=== PATIENT | male | born 1985 | race Caucasian/White ===

== ENCOUNTER 2017-12-21 19:50 | Emergency (ER) | payer OTHER ==
[~2017-12-21] VITALS: Ht 182.9 cm; Wt 136.5 kg
[~2017-12-21 19:50] MED LIST: CIPRO500 MG PO; NORCO 5-325 TA1 EAC1 PO; ULTRAM 50MG TAB50 MG PO; VIAGRA; ZOFRAN ODT4 MG PO
[2017-12-21] MEDS ORDERED: IBUPROFEN 600600 M1 PO (20:51)
[2017-12-21 21:17] VITALS: BP 120/73
[2017-12-21 21:18] LABS: AMP/METHAMP POSITIVE (Negative); BARBITURATES Negative (Negative); BENZODIAZEPINES POSITIVE (Negative); COCAINE Negative (Negative); METHADONE Negative (Negative); OPIATES Negative (Negative); PCP Negative (Negative); THC Negative (Negative)
== END 2017-12-21 21:19 | disposition home or self-care (01) ==
LOC: M.ERS 19:50
PROVIDERS: Nurse Practitioner Family
DX: S30.0XXA Contusion of lower back and pelvis, initial encounter (principal); F31.9 Bipolar disorder, unspecified; F17.200 Nicotine dependence, unspecified, uncomplicated; W50.0XXA Accidental hit or strike by another person, initial encounter; Y93.89 Activity, other specified; Y92.89 Other specified places as the place of occurrence of the external cause; Y99.8 Other external cause status

== ENCOUNTER 2019-11-23 12:36 | Emergency (ER) | payer MEDICAID ==
[~2019-11-23] VITALS: Ht 182.9 cm; Wt 129.3 kg
[~2019-11-23 12:36] MED LIST changes: +IBUPROFEN 600600 M1 PO
[2019-11-23] MEDS ORDERED: BUSPIRONE HCL15 MG PO (12:47)
[2019-11-23] MEDS ORDERED: EFFEXOR XR75 MG PO (12:47)
[2019-11-23] MEDS ORDERED: FLONASE 0.05%50 MCG NARES (12:48)
[2019-11-23] MEDS ORDERED: CLARITIN10 M3 PO (12:48)
[2019-11-23] MEDS ORDERED: TOPAMAX100 MG PO (12:48)
[2019-11-23] MEDS ORDERED: IBUPROFEN 600600 M1 PO (13:48)
[2019-11-23 14:03] VITALS: BP 134/77
== END 2019-11-23 14:03 | disposition home or self-care (01) ==
LOC: M.ERS 12:36
DX: S62.316A Displaced fracture of base of fifth metacarpal bone, right hand, initial encounter for closed fracture (principal); F41.9 Anxiety disorder, unspecified; F31.9 Bipolar disorder, unspecified; F17.210 Nicotine dependence, cigarettes, uncomplicated; W22.8XXA Striking against or struck by other objects, initial encounter; Y93.89 Activity, other specified; Y92.89 Other specified places as the place of occurrence of the external cause; Y99.8 Other external cause status

== ENCOUNTER 2020-07-06 04:59 | Inpatient (IN) | payer MEDICAID ==
[~2020-07-06] VITALS: Ht 182.9 cm; Wt 144.7 kg
[~2020-07-06 04:59] MED LIST changes: +BUSPIRONE HCL15 MG PO; +CLARITIN10 M3 PO; +EFFEXOR XR150 MG PO; +FLONASE 0.05%50 MCG NARES; +TOPAMAX50 MG PO
[2020-07-06 05:11] VITALS: BP 134/82
[2020-07-06 05:44] LABS: ABSOLUTE BASOPHILS 0.2 thou/uL (0.0-0.2); ABSOLUTE EOSINOPHILS 0.7 thou/uL (0.0-0.7); ABSOLUTE LYMPHOCYTES 3.1 thou/uL (0.8-5.3); ABSOLUTE MONOCYTES 1.4 thou/uL (0.0-1.2); ABSOLUTE NEUTROPHILS 9.5 thou/uL (1.6-8.1); BASOPHILS 1.3 %; HEMATOCRIT 41.3 % (42.0-52.0); HEMOGLOBIN 13.6 gm/dL (14.0-18.0); LYMPHOCYTES 20.8 %; MCH 27.6 pg (26.0-34.0); MCHC 32.9 g/dL (28.0-37.0); MCV 83.8 fL (80.0-100.0); MONOCYTES 9.6 %; MPV 7.8 fl. (7.2-11.1); NUCLEATED RBCS 0 /100WBC; PLATELET COUNT* 413 thou/uL (150-400); POLYS 63.3 %; RBC 4.93 mil/uL (4.50-6.00)
[2020-07-06 06:00] LABS: CALCIUM 8.7 mg/dL (8.5-10.1); CREATININE 1.4 mg/dL (0.6-1.3); POTASSIUM 3.7 mmol/L (3.5-5.1)
[2020-07-06 06:04] LABS: ALBUMIN 3.1 g/dL (3.4-5.0); TOTAL BILIRUBIN 0.5 mg/dL (<0.1-1.0); TOTAL PROTEIN 7.5 g/dL (6.4-8.2)
[2020-07-06 06:46] VITALS: BP 141/81
[2020-07-06 07:45] VITALS: BP 105/83
[2020-07-06 11:30] LABS: URINE BILIRUBIN NEGATIVE (Negative); URINE BLOOD TRACE (Negative); URINE CLARITY CLEAR; URINE COLOR YELLOW; URINE GLUCOSE-RANDOM NEGATIVE (Negative); URINE KETONES NEGATIVE (Negative); URINE LEUKOCYTES-REFLEX NEGATIVE (Negative); URINE NITRITE-REFLEX NEGATIVE (Negative); URINE PROTEIN NEGATIVE (Negative); URINE SPECIFIC GRAVITY >= 1.030 (1.005-1.030); URINE UROBILINOGEN 0.2 E.U./dl (0.2-1.0)
[2020-07-06 11:38] LABS: AMP/METHAMP POSITIVE (Negative); BARBITURATES Negative (Negative); BENZODIAZEPINES Negative (Negative); COCAINE Negative (Negative); METHADONE Negative (Negative); OPIATES POSITIVE (Negative); PCP Negative (Negative); THC Negative (Negative)
[2020-07-06] MEDS ORDERED: NORCO 10-325 T1 EACH PO (12:28)
[2020-07-06 14:38] VITALS: BP 105/83
--- NOTE | 2020-07-06 14:55 | NUR ---
PT.LYING IN BED WITH LEG WOUNDS OPEN TO AIR. WOUND CARE NURSE SAW EARLIER. NURSING WILL DO DRESSING CHANGES. WAITING ON HIBICLENS TO COME FROM PHARMACY. HE SAID HE WAS FOLLOWING A JEWEL SORTER. HE SAID HE THOUGHT ALL ALONG SHE WAS A DR. HE NOW IS GOING TO SEE A DR.[place] [facility] [place] [facility] [place] GAVE ME CLINIC NUMBER OF [id number]. CM CALLED TO CONFIRM HIS APPT. RUBBER FACTORY WORKER SAID IT IS 07/13 AT 8:20 AM. CM MADE APPT[place] [facility] [place]/10 AT 1:00. ALL INFORMATION PUT ON DISCHARGE INSTRUCTIONS. WOUND CLINIC SAID PT.HAS MISSED 3 OTHER APPTS. THEY WILL GIVE HIM ONE MORE CHANCE. IF HE MISSES THIS APPT., THEY WILL NOT SEE HIM AGAIN. PT.ONLY TOLD CM HE MISSED ONE APPT.BECAUSE HE COULD NOT GET THERE BECAUSE OF THE SNOW.
[2020-07-06 14:56] VITALS: BP 105/83
--- NOTE | 2020-07-06 15:20 | NUR ---
PATIENT DISCHARGED TO HOME. DISCHARGE PAPERS REVIEWED AND SIGNED. PRESCRIPTION TRANSMITTED TO PHARMACY AND INFORMATION SHEETS GIVEN. IV REMOVED. WOUND CARE AND SUPPLIES GIVEN. PHOTOS REFUSED. PATIENT INSTRUCTED ON FOLLOW-UP APPOINTMENT FOR WOUND CARE CENTER AND DOCTOR'S OFFICE. PATIENT DENIES ANY FURTHER NEEDS. PATIENT TAKEN BY WHEELCHAIR TO EXIT. LEFT WITH MOTHER.
[2020-07-06 15:55] VITALS: BP 105/83
== END 2020-07-06 15:25 | disposition home or self-care (01) | DRG 603 ==
LOC: M.ERS 04:59 → M.TBA-ER 06:09 → M.3W 06:53
PROVIDERS: Emergency Medicine; ADMIT Internal Medicine; ATTEND Internal Medicine
DX: L03.115 Cellulitis of right lower limb (principal); F41.9 Anxiety disorder, unspecified; F31.9 Bipolar disorder, unspecified; L03.011 Cellulitis of right finger; Z20.822 Contact with and (suspected) exposure to COVID-19; E66.01 Morbid (severe) obesity due to excess calories; Z79.899 Other long term (current) drug therapy; Z68.41 Body mass index [BMI] 40.0-44.9, adult